=== PATIENT | female | born 1945 | race Two or more races ===

== ENCOUNTER 2019-07-21 07:18 | Outpatient (CLI) | payer MEDICARE, BC ==
[2019-07-21] MEDS ORDERED: REGADENOSON 0.4 MG/5 ML DISP.SYRIN IVP ONE (08:00)
== END 2019-07-21 23:59 | disposition home or self-care (01) ==
LOC: NM 07:18
PROVIDERS: ATTEND Internal Medicine Interventional Cardiology
DX: R06.09 Other forms of dyspnea (principal); I10 Essential (primary) hypertension
CPT/HCPCS: 78452; A9502; J2785

== ENCOUNTER 2019-07-27 09:45 | Outpatient (CLI) | payer MEDICARE, BC ==
[~2019-07-27] VITALS: Ht 170.2 cm; Wt 81.6 kg
[2019-07-27 10:36] LABS: CALCIUM, SERUM 8.7 mg/dL (8.5-10.1); POTASSIUM 4.2 mmol/L (3.5-5.1)
[2019-07-27] MEDS ORDERED: NITROGLYCERIN 0.4 MG/TAB BOTTLE ONE ×2 (10:41→11:00)
[2019-07-27] MEDS ORDERED: IV NS 0.9% 250 ML IV ONE ×2 (10:41→11:12)
[2019-07-27] MEDS ORDERED: CT SWABBABLE VALVE TRANS SET 1 EA INFUS.SET MC ONE (10:41)
[2019-07-27] MEDS ORDERED: METOPROLOL TARTRATE INJ 5 MG/5 ML AMPUL ONE ×2 (10:41→11:00)
[2019-07-27] MEDS ORDERED: IOHEXOL-350 100 ML VIAL IV ONE (10:41)
[2019-07-27] MEDS ORDERED: NITROGLYCERIN 0.4 MG/TAB BOTTLE SL ONE (11:00)
[2019-07-27] MEDS ORDERED: METOPROLOL TARTRATE INJ 5 MG/5 ML AMPUL IVP ONE (11:00)
[2019-07-27] MEDS: METOPROLOL TARTRATE INJ 5 MG/5 ML AMPUL IVP PRN ×3 (11:07→11:17)
[2019-07-27 11:45] VITALS: BP 105/62
--- NOTE | 2019-07-27 11:45 | NUR ---
RN NOTES RECEIVED PT FROM [facility] LAB STAFF VIA WHEELCHAIR, ASSISTED PT TO CHAIR, PT PREFERS TO SIT IN THE CHAIR, ABLE TO TRANSFER INDEPENDENTLY, NO COMPLAINT OF PAIN OR ANY DISCOMFORT, NO COMPLAINT OF WEAKNESS OR DIZZINESS, VITALS TAKEN AND RECORDED.
[2019-07-27 11:57] VITALS: BP 100/55
[2019-07-27 12:05] VITALS: BP 98/59
[2019-07-27 12:15] VITALS: BP 103/55
--- NOTE | 2019-07-27 12:15 | NUR ---
RN NOTES PT VERY EAGER TO LEAVE, AMBULATES STEADILY, DENIES PAIN OR ANY DISCOMFORT, NO SOB, VITAL SIGNS STABLE, IV LINE REMOVED, ACCOMPANIED PT TO HOSPITAL LOBBY, AMBULATES WITH STEADY GAIT, LEFT VIA PRIVATE CAR IN STABLE CONDITION.
== END 2019-07-27 23:59 | disposition home or self-care (01) ==
LOC: CT 09:45
PROVIDERS: ATTEND Internal Medicine Interventional Cardiology
DX: K44.9 Diaphragmatic hernia without obstruction or gangrene (principal); M47.814 Spondylosis without myelopathy or radiculopathy, thoracic region
CPT/HCPCS: 36415; 75574; 80048; J3490 ×2; J7050 ×2; Q9967